=== PATIENT | female | born 1990 ===

== ENCOUNTER 2018-05-23 09:07 | Emergency (ER) | payer MEDICARE, MEDICAID, BC ==
[2018-05-23 09:37] VITALS: O2SAT 100
--- NOTE | 2018-05-23 10:50 | RAD ---
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 PLEURA: No significant pleural effusion identified, no pneumothorax apparent. CARDIOVASCULAR: Normal. OSSEOUS STRUCTURES: No significant abnormalities. Spinal midline stimulator thoracic-lumbar levels. VISUALIZED UPPER ABDOMEN: Left upper abdominal quadrant similar-appearing coiled inferred isolated peritoneal shunt catheter-similar Distended and redundant appearing colon especially hepatic transverse and splenic flexures. Extensive stool retention right colon and to lesser extent left colon. The colonic distension is a similar finding compatible with an ileus-an obstruction is not excluded. Correlate clinically. OTHER FINDINGS: None. IMPRESSION: No pulmonary infiltrate. Colonic distension-a finding noted on prior 2015 study as well colonic ileus versus obstruction are considerations. Correlate clinically. Right and left retained stool also noted. Follow-up recommended. Other findings as above.
--- NOTE | 2018-05-23 11:47 | ED PDOC ---
HPI: General Adult Time Seen by Provider: 05/23/18 09:24 Chief Complaint (Nursing): Chest Pain History Per: Family (According to family this 28 yo female who is non-verbal c/o chest pain after she coughed while being fed this morning. Patient is unable to give details although she can answer closed ended questions. She is otherwise okay according to parents. Patient goes to day programs in general.. ) Past Medical History Reviewed: Historical Data, Nursing Documentation, Vital Signs Vital Signs: Last Vital Signs Temp 97.9 F 05/23/18 09:36 Pulse 116 H 05/23/18 09:36 Resp 18 05/23/18 09:36 BP 121/19 L 05/23/18 09:36 Pulse Ox 100 05/23/18 09:36 - Medical History Other PMH: paraplegic with anoxic encephalopathy - Family History Family History: States: No Known Family Hx - Living Arrangements Living Arrangements: With Family - Allergies Allergies/Adverse Reactions: Allergies Allergy/AdvReac Type Severity Reaction Status Date / Time No Known Allergies Allergy Verified 05/23/18 09:13 Review of Systems Review Of Systems: ROS cannot be obtained secondary to pt's inabilty to answer questions. Physical Exam - Reviewed Nursing Documentation Reviewed: Yes Vital Signs Reviewed: Yes - Physical Exam Appears: Positive for: Well, No Acute Distress Head Exam: Positive for: ATRAUMATIC, NORMAL INSPECTION, NORMOCEPHALIC Skin: Positive for: Normal Color Eye Exam: Positive for: Normal appearance, EOMI Neck: Positive for: Supple Cardiovascular/Chest: Positive for: Regular Rate, Rhythm Respiratory: Positive for: CNT, Normal Breath Sounds Gastrointestinal/Abdominal: Positive for: Soft Back: Positive for: Normal Inspection Extremity: Positive for: Normal ROM Neurologic/Psych: Positive for: Alert - ECG O2 Sat by Pulse Oximetry: 100 Disposition - Clinical Impression Clinical Impression: Chest pain - Patient ED Disposition Is Patient to be Admitted: No Doctor Will See Patient In The: Office Counseled Patient/Family Regarding: Diagnosis, Need For Followup - Disposition Referrals: Asim Monroy MD [Family Provider] - Disposition: Routine/Home Disposition Time: 11:30 Condition: STABLE Instructions: Chest Pain (DC) Print Language: BULGARIAN
[2018-05-23 12:00] VITALS: BP 108/67; PULSE 88; RESP 17; TEMP 98
== END 2018-05-23 11:58 | disposition home or self-care (01) ==
LOC: H.ER 09:07
DX: R07.89 Other chest pain (principal)